=== PATIENT | male | born 1975 | race Caucasian/White ===

== ENCOUNTER 2019-06-21 10:31 | Inpatient (IN) | payer OTHER ==
[~2019-06-21] VITALS: Ht 172.7 cm; Wt 65.8 kg
[2019-06-21] MEDS ORDERED: MORPHINE SULFATE 4 MG/ML SYRINGE IVP ONE ×2 (11:30→13:45)
[2019-06-21] MEDS ORDERED: SODIUM CHLORIDE 0.9% 1,000 ML IV ONE (11:30)
[2019-06-21] MEDS ORDERED: PIPERACILLIN/TAZO 3.375 GM/D5W 50 ML IV ONE (11:30)
[2019-06-21] MEDS ORDERED: PERTUSS(ACELL),DIPH,TET VAC/PF 0.5 ML VIAL IM ONE (11:30)
[2019-06-21 11:42] LABS: BASOPHILS % (AUTO) 0.7 % (0.0-2.0); EOSINOPHILS % (AUTO) 0.3 % (1.0-6.0); HEMATOCRIT 46.5 % (41-53); HEMOGLOBIN 15.7 g/dL (13.5-17.5); LYMPHOCYTES # (AUTO) 2.1 K/uL (1.0-4.8); LYMPHOCYTES % (AUTO) 27.9 % (22.0-44.0); MEAN CORPUSCULAR HEMOGLOBIN 30.2 pg (26.0-34.0); MEAN CORPUSCULAR HGB CONC 33.7 G/dL (31.0-37.0); MEAN CORPUSCULAR VOLUME 90 fL (80-100); MONOCYTES # (AUTO) 0.5 K/uL (0.1-1.0); MONOCYTES % (AUTO) 6.1 % (2.0-9.0); NEUTROPHILS # (AUTO) 4.8 K/uL (1.8-7.7); PLATELET COUNT (AUTO) 267 K/uL (150-450); RED BLOOD CELL COUNT(AUTO) 5.19 MIL/uL (4.50-5.90); RED CELL DISTRIBUTION WIDTH 13.2 % (11.5-14.5)
[2019-06-21] MEDS ORDERED: LORazepam 2 MG/ML VIAL IVP ONE ×2 (11:45→13:45)
[2019-06-21 11:59] LABS: ANION GAP 6 mmol/L (8-16); CARBON DIOXIDE 31 mmol/L (22-29); CHLORIDE 106 mmol/L (98-107); CREATININE 0.97 mg/dL (0.60-1.30); GLOMERULAR FILTR. RATE CALC > 60 mL/min (>60); GLUCOSE,RANDOM 110 mg/dL (70-110); POTASSIUM 4.4 mmol/L (3.5-5.1); SODIUM SERUM 143 mmol/L (136-145); UREA NITROGEN, BLOOD 13 mg/dL (7-18)
[2019-06-21 12:03] LABS: ALANINE AMINOTRANSFERASE 33 U/L (12-78); ALBUMIN 3.4 g/dL (3.4-5.0); ALKALINE PHOSPHATASE 78 U/L (46-116); ASPARTATE AMINOTRANSFERASE 14 U/L (15-37); BILIRUBIN,TOTAL 0.4 mg/dL (0.1-1.0); TOTAL PROTEIN, SERUM 7.1 g/dL (6.4-8.2)
[2019-06-21] MEDS ORDERED: ACETAMINOPHEN 325 MG TABLET PO PRN (14:30)
[2019-06-21] MEDS ORDERED: ONDANSETRON HCL 4 MG/2 ML VIAL IVP PRN (14:30)
[2019-06-21 15:48] VITALS: BP 131/79
[2019-06-21 20:30] VITALS: BP 128/74
[2019-06-22] VITALS (8 sets, daily range): BP systolic 102–122; BP diastolic 57–78
[2019-06-22] MEDS ORDERED: ONDANSETRON HCL 4 MG/2 ML VIAL IVP PRN (03:15)
[2019-06-22] MEDS ORDERED: 0.9% SODIUM CHLORIDE 10 ML SYRINGE IVP PRN (03:15)
[2019-06-22] MEDS ORDERED: SODIUM CHLORIDE 0.9% 500 ML IV ONE (04:46)
[2019-06-22] MEDS: PIPERACILLIN/TAZO 3.375 GM/D5W 50 ML IV SCH ×4 (04:52→21:12)
[2019-06-22] MEDS: OxyCODONE HCL/ACETAMINOPHEN 5-325 MG TABLET PO PRN ×3 (06:51→23:51)
[2019-06-22] MEDS: DOCUSATE SODIUM 100 MG CAPSULE PO SCH ×2 (09:00→20:32)
[2019-06-22] MEDS: FAMOTIDINE 10 MG/ML 2 ML VIAL IVP SCH (09:19)
[2019-06-23] MEDS: PIPERACILLIN/TAZO 3.375 GM/D5W 50 ML IV SCH ×4 (03:35→21:40)
[2019-06-23 05:15] VITALS: BP 113/61
[2019-06-23 07:38] LABS: BASOPHILS % (AUTO) 0.8 % (0.0-2.0); EOSINOPHILS % (AUTO) 0.5 % (1.0-6.0); HEMATOCRIT 44.1 % (41-53); HEMOGLOBIN 15.1 g/dL (13.5-17.5); LYMPHOCYTES # (AUTO) 2.8 K/uL (1.0-4.8); LYMPHOCYTES % (AUTO) 26.9 % (22.0-44.0); MEAN CORPUSCULAR HEMOGLOBIN 30.4 pg (26.0-34.0); MEAN CORPUSCULAR HGB CONC 34.3 G/dL (31.0-37.0); MEAN CORPUSCULAR VOLUME 89 fL (80-100); MONOCYTES # (AUTO) 0.8 K/uL (0.1-1.0); MONOCYTES % (AUTO) 7.8 % (2.0-9.0); NEUTROPHILS # (AUTO) 6.6 K/uL (1.8-7.7); PLATELET COUNT (AUTO) 213 K/uL (150-450); RED BLOOD CELL COUNT(AUTO) 4.97 MIL/uL (4.50-5.90)
[2019-06-23 07:50] LABS: ANION GAP 10 mmol/L (8-16); CALCIUM, TOTAL 8.3 mg/dL (8.8-10.5); CARBON DIOXIDE 26 mmol/L (22-29); CHLORIDE 103 mmol/L (98-107); GLOMERULAR FILTR. RATE CALC > 60 mL/min (>60); GLUCOSE,RANDOM 115 mg/dL (70-110); POTASSIUM 4.2 mmol/L (3.5-5.1); SODIUM SERUM 139 mmol/L (136-145); UREA NITROGEN, BLOOD 17 mg/dL (7-18)
[2019-06-23 07:59] VITALS: BP 120/68
[2019-06-23] MEDS: DOCUSATE SODIUM 100 MG CAPSULE PO SCH ×2 (08:44→21:40)
[2019-06-23] MEDS: FAMOTIDINE 10 MG/ML 2 ML VIAL IVP SCH (10:35)
[2019-06-23 11:19] VITALS: BP 108/60
[2019-06-23 16:03] VITALS: BP 106/68
[2019-06-23 21:00] VITALS: BP 105/57
[2019-06-23 23:42] VITALS: BP 121/75
[2019-06-24] MEDS: PIPERACILLIN/TAZO 3.375 GM/D5W 50 ML IV SCH ×4 (04:38→21:30)
[2019-06-24 04:55] VITALS: BP 109/69
[2019-06-24 07:35] VITALS: BP 116/72
[2019-06-24 08:02] LABS: BASOPHILS % (AUTO) 0.7 % (0.0-2.0); EOSINOPHILS % (AUTO) 1.1 % (1.0-6.0); HEMATOCRIT 42.8 % (41-53); HEMOGLOBIN 14.5 g/dL (13.5-17.5); LYMPHOCYTES # (AUTO) 2.7 K/uL (1.0-4.8); LYMPHOCYTES % (AUTO) 28.4 % (22.0-44.0); MEAN CORPUSCULAR HEMOGLOBIN 30.2 pg (26.0-34.0); MEAN CORPUSCULAR HGB CONC 33.9 G/dL (31.0-37.0); MEAN CORPUSCULAR VOLUME 89 fL (80-100); MONOCYTES # (AUTO) 0.8 K/uL (0.1-1.0); MONOCYTES % (AUTO) 7.8 % (2.0-9.0); PLATELET COUNT (AUTO) 233 K/uL (150-450); RED CELL DISTRIBUTION WIDTH 13.4 % (11.5-14.5)
[2019-06-24 08:13] LABS: ANION GAP 7 mmol/L (8-16); CALCIUM, TOTAL 8.4 mg/dL (8.8-10.5); CARBON DIOXIDE 29 mmol/L (22-29); CHLORIDE 105 mmol/L (98-107); CREATININE 0.86 mg/dL (0.60-1.30); GLOMERULAR FILTR. RATE CALC > 60 mL/min (>60); GLUCOSE,RANDOM 111 mg/dL (70-110); POTASSIUM 4.8 mmol/L (3.5-5.1); SODIUM SERUM 141 mmol/L (136-145); UREA NITROGEN, BLOOD 14 mg/dL (7-18)
[2019-06-24] MEDS: DOCUSATE SODIUM 100 MG CAPSULE PO SCH ×2 (09:21→20:14)
[2019-06-24] MEDS: FAMOTIDINE 10 MG/ML 2 ML VIAL IVP SCH (09:21)
[2019-06-24 11:31] VITALS: BP 105/85
[2019-06-24 16:09] VITALS: BP 118/67
[2019-06-24 19:47] VITALS: BP 108/67
[2019-06-24 23:29] VITALS: BP 119/71
[2019-06-25] MEDS: PIPERACILLIN/TAZO 3.375 GM/D5W 50 ML IV SCH ×4 (04:18→22:13)
[2019-06-25 05:59] VITALS: BP 112/80
[2019-06-25 05:59] LABS: EOSINOPHILS % (AUTO) 1.2 % (1.0-6.0); HEMATOCRIT 40.3 % (41-53); HEMOGLOBIN 13.6 g/dL (13.5-17.5); LYMPHOCYTES # (AUTO) 2.4 K/uL (1.0-4.8); LYMPHOCYTES % (AUTO) 29.3 % (22.0-44.0); MEAN CORPUSCULAR HEMOGLOBIN 29.9 pg (26.0-34.0); MEAN CORPUSCULAR HGB CONC 33.6 G/dL (31.0-37.0); MEAN CORPUSCULAR VOLUME 89 fL (80-100); MONOCYTES # (AUTO) 0.8 K/uL (0.1-1.0); MONOCYTES % (AUTO) 9.5 % (2.0-9.0); NEUTROPHILS # (AUTO) 4.8 K/uL (1.8-7.7); PLATELET COUNT (AUTO) 239 K/uL (150-450); RED BLOOD CELL COUNT(AUTO) 4.53 MIL/uL (4.50-5.90)
[2019-06-25 08:24] VITALS: BP 111/67
[2019-06-25] MEDS: DOCUSATE SODIUM 100 MG CAPSULE PO SCH ×2 (09:18→20:12)
[2019-06-25] MEDS: FAMOTIDINE 10 MG/ML 2 ML VIAL IVP SCH (09:19)
[2019-06-25 17:04] VITALS: BP 112/69
[2019-06-25 20:00] VITALS: BP 106/65
[2019-06-26 00:09] VITALS: BP 119/66
[2019-06-26] MEDS: PIPERACILLIN/TAZO 3.375 GM/D5W 50 ML IV SCH ×4 (04:22→21:00)
[2019-06-26 05:08] VITALS: BP 104/60
[2019-06-26 07:47] LABS: BASOPHILS % (AUTO) 0.7 % (0.0-2.0); EOSINOPHILS % (AUTO) 1.2 % (1.0-6.0); HEMATOCRIT 41.3 % (41-53); HEMOGLOBIN 13.8 g/dL (13.5-17.5); LYMPHOCYTES # (AUTO) 2.3 K/uL (1.0-4.8); LYMPHOCYTES % (AUTO) 27.5 % (22.0-44.0); MEAN CORPUSCULAR HGB CONC 33.5 G/dL (31.0-37.0); MEAN CORPUSCULAR VOLUME 89 fL (80-100); MONOCYTES # (AUTO) 0.7 K/uL (0.1-1.0); MONOCYTES % (AUTO) 7.7 % (2.0-9.0); NEUTROPHILS # (AUTO) 5.3 K/uL (1.8-7.7); NEUTROPHILS % (AUTO) 62.9 % (40.0-70.0); PLATELET COUNT (AUTO) 272 K/uL (150-450); RED BLOOD CELL COUNT(AUTO) 4.61 MIL/uL (4.50-5.90); RED CELL DISTRIBUTION WIDTH 13.2 % (11.5-14.5)
[2019-06-26] MEDS: DOCUSATE SODIUM 100 MG CAPSULE PO SCH ×2 (09:00→21:00)
[2019-06-26] MEDS: FAMOTIDINE 10 MG/ML 2 ML VIAL IVP SCH (09:07)
[2019-06-26 13:08] VITALS: BP 116/70
[2019-06-26] MEDS ORDERED: SODIUM CHLORIDE 0.9% 500 ML IV ONE (14:59)
[2019-06-26 20:46] VITALS: BP 114/63
[2019-06-27 00:13] VITALS: BP 120/72
[2019-06-27] MEDS: PIPERACILLIN/TAZO 3.375 GM/D5W 50 ML IV SCH (04:24)
[2019-06-27 04:40] VITALS: BP 117/72
[2019-06-27 08:07] LABS: ANION GAP 5 mmol/L (8-16); CALCIUM, TOTAL 8.6 mg/dL (8.8-10.5); CARBON DIOXIDE 28 mmol/L (22-29); CHLORIDE 104 mmol/L (98-107); CREATININE 0.91 mg/dL (0.60-1.30); GLOMERULAR FILTR. RATE CALC > 60 mL/min (>60); GLUCOSE,RANDOM 117 mg/dL (70-110); POTASSIUM 4.4 mmol/L (3.5-5.1); SODIUM SERUM 137 mmol/L (136-145); UREA NITROGEN, BLOOD 13 mg/dL (7-18)
[2019-06-27 08:14] LABS: BASOPHILS % (AUTO) 0.9 % (0.0-2.0); EOSINOPHILS % (AUTO) 1.2 % (1.0-6.0); HEMATOCRIT 38.5 % (41-53); HEMOGLOBIN 13.2 g/dL (13.5-17.5); LYMPHOCYTES # (AUTO) 2.7 K/uL (1.0-4.8); LYMPHOCYTES % (AUTO) 24.9 % (22.0-44.0); MEAN CORPUSCULAR HEMOGLOBIN 30.6 pg (26.0-34.0); MEAN CORPUSCULAR HGB CONC 34.2 G/dL (31.0-37.0); MEAN CORPUSCULAR VOLUME 89 fL (80-100); MONOCYTES # (AUTO) 0.9 K/uL (0.1-1.0); MONOCYTES % (AUTO) 8.3 % (2.0-9.0); NEUTROPHILS % (AUTO) 64.7 % (40.0-70.0); PLATELET COUNT (AUTO) 286 K/uL (150-450); RED BLOOD CELL COUNT(AUTO) 4.31 MIL/uL (4.50-5.90); RED CELL DISTRIBUTION WIDTH 12.9 % (11.5-14.5)
[2019-06-27 08:25] VITALS: BP 115/70
[2019-06-27] MEDS ORDERED: RINGERS SOLUTION,LACTATED 1,000 ML IV ONE ×2 (09:00→09:09)
[2019-06-27] MEDS: DOCUSATE SODIUM 100 MG CAPSULE PO SCH ×2 (09:00→21:00)
[2019-06-27] MEDS: FAMOTIDINE 10 MG/ML 2 ML VIAL IVP SCH (09:00)
[2019-06-27] MEDS ORDERED: SODIUM CL IRRIG SOLN BAG 3,000 ML IRRIG ONE (09:43)
[2019-06-27] MEDS ORDERED: BACITRACIN 50,000 UNITS/VIAL ONE (11:14)
[2019-06-27] MEDS ORDERED: FentaNYL CITRATE-PF 100 MCG/2 ML VIAL IVP ONE (12:00)
[2019-06-27] MEDS ORDERED: MIDAZOLAM HCL 2 MG/2 ML VIAL IVP ONE (12:00)
[2019-06-27] MEDS ORDERED: PROPOFOL 1% 20 ML VIAL IVP ONE (12:00)
[2019-06-27] MEDS ORDERED: ONDANSETRON HCL 4 MG/2 ML VIAL IVP ONE (12:00)
[2019-06-27] MEDS ORDERED: LIDOCAINE 1% 10 ML VIAL INJ ONE (12:00)
[2019-06-27] MEDS ORDERED: HYDROmorphone 2 MG/ML SYRINGE IVP ONE (12:00)
[2019-06-27] MEDS ORDERED: SODIUM CHLORIDE 0.9% 1,000 ML ONE (12:14)
[2019-06-27] MEDS ORDERED: NEOMYCIN/BACITRACIN/POLYMYXIN B OINTMENT PACKET TP ONE (12:43)
[2019-06-27] MEDS ORDERED: HYDROmorphone 2 MG/ML SYRINGE IVP PRN (12:45)
[2019-06-27] MEDS ORDERED: FentaNYL CITRATE-PF 100 MCG/2 ML VIAL IVP PRN (12:45)
[2019-06-27 16:00] VITALS: BP 122/64
[2019-06-27] MEDS: SULFAMETHOX/TRIMETH DS 800-160 MG/TABLET PO SCH ×2 (17:20→23:18)
[2019-06-27 19:54] VITALS: BP 134/78
[2019-06-27 23:48] VITALS: BP 131/75
[2019-06-28 04:02] VITALS: BP 100/69
[2019-06-28 06:56] LABS: BASOPHILS % (AUTO) 0.7 % (0.0-2.0); EOSINOPHILS % (AUTO) 0.6 % (1.0-6.0); HEMATOCRIT 38.3 % (41-53); HEMOGLOBIN 12.9 g/dL (13.5-17.5); LYMPHOCYTES # (AUTO) 2.7 K/uL (1.0-4.8); LYMPHOCYTES % (AUTO) 27.1 % (22.0-44.0); MEAN CORPUSCULAR HEMOGLOBIN 29.9 pg (26.0-34.0); MEAN CORPUSCULAR HGB CONC 33.6 G/dL (31.0-37.0); MEAN CORPUSCULAR VOLUME 89 fL (80-100); MONOCYTES # (AUTO) 0.7 K/uL (0.1-1.0); MONOCYTES % (AUTO) 6.9 % (2.0-9.0); NEUTROPHILS # (AUTO) 6.4 K/uL (1.8-7.7); NEUTROPHILS % (AUTO) 64.7 % (40.0-70.0); PLATELET COUNT (AUTO) 306 K/uL (150-450); RED BLOOD CELL COUNT(AUTO) 4.31 MIL/uL (4.50-5.90); RED CELL DISTRIBUTION WIDTH 12.8 % (11.5-14.5)
[2019-06-28] MEDS: OXYGEN THERAPY IH SCH (08:00)
[2019-06-28 08:02] VITALS: BP 124/74
[2019-06-28] MEDS: SULFAMETHOX/TRIMETH DS 800-160 MG/TABLET PO SCH ×2 (08:49→16:11)
[2019-06-28] MEDS: OxyCODONE HCL/ACETAMINOPHEN 5-325 MG TABLET PO PRN (08:49)
[2019-06-28] MEDS: DOCUSATE SODIUM 100 MG CAPSULE PO SCH ×2 (08:49→21:18)
[2019-06-28] MEDS: FAMOTIDINE 10 MG/ML 2 ML VIAL IVP SCH (08:49)
[2019-06-28 11:18] VITALS: BP 132/76
[2019-06-28 15:04] VITALS: BP 112/51
[2019-06-28 17:06] LABS: AMPHET/METH SCREEN,URINE NEGATIVE (NEGATIVE); BARBITURATE SCREEN, URINE NEGATIVE (NEGATIVE); BENZODIAZEPINES SCREEN,URINE POSITIVE (NEGATIVE); CANNABINOID SCREEN,URINE NEGATIVE (NEGATIVE); COCAINE SCREEN,URINE NEGATIVE (NEGATIVE); METHADONE SCREEN, URINE NEGATIVE (NEGATIVE); OPIATE SCREEN,URINE NEGATIVE (NEGATIVE)
[2019-06-28 17:08] LABS: PHENCYCLIDINE SCREEN,URINE NEGATIVE (NEGATIVE)
[2019-06-28 19:35] VITALS: BP 116/69
[2019-06-28] MEDS: OLANZapine 10 MG TABLET PO SCH (21:18)
[2019-06-29] MEDS: SULFAMETHOX/TRIMETH DS 800-160 MG/TABLET PO SCH ×3 (00:26→15:33)
[2019-06-29 00:45] VITALS: BP 115/62
[2019-06-29 04:15] VITALS: BP 115/69
[2019-06-29 07:10] VITALS: BP 104/65
[2019-06-29] MEDS: OXYGEN THERAPY IH SCH (08:00)
[2019-06-29 08:01] LABS: LYMPHOCYTES # (AUTO) 3.1 K/uL (1.0-4.8); LYMPHOCYTES % (AUTO) 31.1 % (22.0-44.0); MEAN CORPUSCULAR HEMOGLOBIN 30.3 pg (26.0-34.0); MEAN CORPUSCULAR HGB CONC 34.1 G/dL (31.0-37.0); MEAN CORPUSCULAR VOLUME 89 fL (80-100); MONOCYTES # (AUTO) 0.6 K/uL (0.1-1.0); NEUTROPHILS # (AUTO) 6.1 K/uL (1.8-7.7); NEUTROPHILS % (AUTO) 60.9 % (40.0-70.0); PLATELET COUNT (AUTO) 350 K/uL (150-450); RED BLOOD CELL COUNT(AUTO) 4.28 MIL/uL (4.50-5.90); RED CELL DISTRIBUTION WIDTH 12.8 % (11.5-14.5)
[2019-06-29] MEDS: DOCUSATE SODIUM 100 MG CAPSULE PO SCH ×2 (08:49→20:45)
[2019-06-29] MEDS: FAMOTIDINE 10 MG/ML 2 ML VIAL IVP SCH (08:49)
[2019-06-29] MEDS: MULTIVITAMINS WITH MINERALS, THERAPEUTIC TABLET PO SCH (08:49)
[2019-06-29 11:26] VITALS: BP 118/64
[2019-06-29 15:20] VITALS: BP 114/60
[2019-06-29] MEDS ORDERED: SODIUM CL IRRIG SOLN BOTTLE 250 ML IRRIG ONE (15:40)
[2019-06-29 19:40] VITALS: BP 136/78
[2019-06-29] MEDS: OxyCODONE HCL/ACETAMINOPHEN 5-325 MG TABLET PO PRN (20:45)
[2019-06-29] MEDS: OLANZapine 10 MG TABLET PO SCH (20:45)
[2019-06-30 00:18] VITALS: BP 107/63
[2019-06-30] MEDS: SULFAMETHOX/TRIMETH DS 800-160 MG/TABLET PO SCH ×3 (00:43→16:27)
[2019-06-30 04:58] VITALS: BP 115/64
[2019-06-30 07:52] VITALS: BP 126/59
[2019-06-30] MEDS: OXYGEN THERAPY IH SCH (08:00)
[2019-06-30] MEDS: MULTIVITAMINS WITH MINERALS, THERAPEUTIC TABLET PO SCH (08:37)
[2019-06-30] MEDS: DOCUSATE SODIUM 100 MG CAPSULE PO SCH ×2 (08:37→21:16)
[2019-06-30] MEDS: FAMOTIDINE 10 MG/ML 2 ML VIAL IVP SCH (08:46)
[2019-06-30 11:48] VITALS: BP 107/62
[2019-06-30 15:32] VITALS: BP 110/67
[2019-06-30 20:15] VITALS: BP 121/71
[2019-06-30] MEDS: OLANZapine 10 MG TABLET PO SCH (21:16)
[2019-06-30] MEDS: OxyCODONE HCL/ACETAMINOPHEN 5-325 MG TABLET PO PRN (21:17)
[2019-07-01 00:08] VITALS: BP 106/65
[2019-07-01] MEDS: SULFAMETHOX/TRIMETH DS 800-160 MG/TABLET PO SCH ×3 (00:50→17:15)
[2019-07-01 04:55] VITALS: BP 90/50
[2019-07-01 08:00] VITALS: BP 110/78
[2019-07-01] MEDS: OXYGEN THERAPY IH SCH (08:00)
[2019-07-01] MEDS: FAMOTIDINE 10 MG/ML 2 ML VIAL IVP SCH (08:13)
[2019-07-01] MEDS: MULTIVITAMINS WITH MINERALS, THERAPEUTIC TABLET PO SCH (08:13)
[2019-07-01] MEDS: DOCUSATE SODIUM 100 MG CAPSULE PO SCH ×2 (08:13→21:42)
[2019-07-01] MEDS ORDERED: SODIUM CL IRRIG SOLN BOTTLE 250 ML IRRIG ONE (12:01)
[2019-07-01 15:41] VITALS: BP 134/68
[2019-07-01] MEDS ORDERED: ONDANSETRON HCL 4 MG TABLET PO PRN (15:45)
[2019-07-01 19:30] VITALS: BP 122/70
[2019-07-01] MEDS: OLANZapine 10 MG TABLET PO SCH (21:42)
[2019-07-01 23:50] VITALS: BP 118/72
[2019-07-02] MEDS: SULFAMETHOX/TRIMETH DS 800-160 MG/TABLET PO SCH ×3 (00:20→17:25)
[2019-07-02 04:30] VITALS: BP 98/62
[2019-07-02 08:07] VITALS: BP 124/76
[2019-07-02] MEDS: DOCUSATE SODIUM 100 MG CAPSULE PO SCH ×2 (09:40→21:33)
[2019-07-02] MEDS: MULTIVITAMINS WITH MINERALS, THERAPEUTIC TABLET PO SCH (09:40)
[2019-07-02] MEDS: FAMOTIDINE 10 MG/ML 2 ML VIAL IVP SCH (09:40)
[2019-07-02 11:32] VITALS: BP 134/82
[2019-07-02 15:13] VITALS: BP 130/78
[2019-07-02 20:10] VITALS: BP 112/68
[2019-07-02] MEDS: OLANZapine 10 MG TABLET PO SCH (21:33)
[2019-07-03] MEDS: SULFAMETHOX/TRIMETH DS 800-160 MG/TABLET PO SCH ×3 (00:18→15:23)
[2019-07-03 04:15] VITALS: BP 111/71
[2019-07-03 07:25] VITALS: BP 113/71
[2019-07-03] MEDS: DOCUSATE SODIUM 100 MG CAPSULE PO SCH ×2 (08:01→21:43)
[2019-07-03] MEDS: MULTIVITAMINS WITH MINERALS, THERAPEUTIC TABLET PO SCH (08:02)
[2019-07-03] MEDS: FAMOTIDINE 10 MG/ML 2 ML VIAL IVP SCH (09:00)
[2019-07-03 11:43] VITALS: BP 112/72
[2019-07-03 15:10] VITALS: BP 114/70
[2019-07-03] MEDS ORDERED: FAMO20 PO (17:56)
[2019-07-03] MEDS ORDERED: DOCU-275 PO (17:56)
[2019-07-03] MEDS ORDERED: OLAN10TA3 PO (17:57)
[2019-07-03] MEDS ORDERED: MULT-248 PO (17:57)
[2019-07-03] MEDS: OLANZapine 10 MG TABLET PO SCH (21:43)
[2019-07-03 23:56] VITALS: BP 131/81
[2019-07-03] MEDS: ACETAMINOPHEN 325 MG TABLET PO PRN (23:58)
[2019-07-04] MEDS: SULFAMETHOX/TRIMETH DS 800-160 MG/TABLET PO SCH ×4 (01:07→23:27)
[2019-07-04 04:38] VITALS: BP 130/77
[2019-07-04 08:17] VITALS: BP 114/67
[2019-07-04] MEDS: DOCUSATE SODIUM 100 MG CAPSULE PO SCH ×2 (08:34→21:10)
[2019-07-04] MEDS: MULTIVITAMINS WITH MINERALS, THERAPEUTIC TABLET PO SCH (08:34)
[2019-07-04] MEDS: FAMOTIDINE 20 MG TABLET PO SCH (08:34)
[2019-07-04] MEDS: ACETAMINOPHEN 325 MG TABLET PO PRN (11:24)
[2019-07-04 11:46] VITALS: BP 120/77
[2019-07-04 16:26] VITALS: BP 124/70
[2019-07-04] MEDS: OLANZapine 10 MG TABLET PO SCH (21:10)
[2019-07-04 21:19] VITALS: BP 106/70
[2019-07-05 00:15] VITALS: BP 100/59
[2019-07-05 04:00] VITALS: BP 99/61
[2019-07-05] MEDS: ACETAMINOPHEN 325 MG TABLET PO PRN (04:06)
[2019-07-05 07:45] VITALS: BP 99/64
[2019-07-05] MEDS: DOCUSATE SODIUM 100 MG CAPSULE PO SCH ×2 (08:19→21:04)
[2019-07-05] MEDS: MULTIVITAMINS WITH MINERALS, THERAPEUTIC TABLET PO SCH (08:19)
[2019-07-05] MEDS: DOXYCYCLINE HYCLATE 100 MG CAPSULE PO SCH ×2 (08:19→21:04)
[2019-07-05] MEDS: FAMOTIDINE 20 MG TABLET PO SCH (08:19)
[2019-07-05] MEDS ORDERED: LEVOFLOXACIN 500 MG TABLET PO SCH (09:00)
[2019-07-05 16:00] VITALS: BP 99/58
[2019-07-05 20:12] VITALS: BP 119/68
[2019-07-05] MEDS: OLANZapine 10 MG TABLET PO SCH (21:04)
[2019-07-05 23:30] VITALS: BP 108/62
[2019-07-06 04:30] VITALS: BP 120/66
== END 2019-07-06 08:35 | disposition left against medical advice (07) | DRG 483 ==
LOC: EMS 10:34 → 6N 14:31 → 4E 06-22 07:25 → 6N 06-25 08:44
PROVIDERS: ADMIT Internal Medicine; ATTEND Internal Medicine
PROC: 3E0234Z Introduction of Serum, Toxoid and Vaccine into Muscle, Percutaneous Approach (ICD-10-PCS; 2019-06-21)
PROC: 0V9S0ZZ Drainage of Penis, Open Approach (ICD-10-PCS; 2019-06-27)
PROC: 0VBS0ZZ Excision of Penis, Open Approach (ICD-10-PCS; 2019-06-27)
PROC: 0T9B00Z Drainage of Bladder with Drainage Device, Open Approach (ICD-10-PCS; principal; 2019-06-27 10:00)
DX: N49.3 Fournier gangrene (principal); F20.9 Schizophrenia, unspecified; Z93.6 Other artificial openings of urinary tract status; S30.842A External constriction of penis, initial encounter; Z59.0 Homelessness; W49.04XA Ring or other jewelry causing external constriction, initial encounter; Z53.29 Procedure and treatment not carried out because of patient's decision for other reasons; Y93.89 Activity, other specified; Y92.89 Other specified places as the place of occurrence of the external cause; Y99.8 Other external cause status; Z79.899 Other long term (current) drug therapy; Z91.040 Latex allergy status; Z23 Encounter for immunization; N48.89 Other specified disorders of penis; N35.919 Unspecified urethral stricture, male, unspecified site
CPT/HCPCS: 80307; 83036; 87070; 87086; 87205; 88304; 90715; G0378; J1170; J2060; J2250; J2270; J2405; J2543; J2704; J3010; J3490; J7030; J7040; J7120; Q0162

== ENCOUNTER 2020-05-17 11:43 | Emergency (ER) | payer OTHER ==
[~2020-05-17] VITALS: Ht 162.6 cm; Wt 80.0 kg
[~2020-05-17 11:43] MED LIST: DOCU-275 PO; FAMO20 PO; MULT-248 PO; OLAN10TA3 PO
[2020-05-17] MEDS ORDERED: IBUPROFEN 600 MG TABLET PO ONE (13:00)
[2020-05-17] MEDS ORDERED: BACLOFEN 10 MG TABLET PO ONE (13:00)
[2020-05-17] MEDS ORDERED: TraMADol HCL 50 MG TABLET PO ONE (13:00)
[2020-05-17 13:35] VITALS: BP 145/87
== END 2020-05-17 13:36 | disposition home or self-care (01) ==
LOC: EMS 11:46
DX: M54.5 Low back pain (principal); G89.29 Other chronic pain; F20.9 Schizophrenia, unspecified; Z91.040 Latex allergy status
CPT/HCPCS: Z7502; Z7610